=== PATIENT | female | born 1970 | race Caucasian/White ===

== ENCOUNTER 2017-12-19 12:11 | Emergency (ER) | payer BC ==
[2017-12-19 16:37] VITALS: BP 141/90
--- NOTE | 2017-12-19 16:45 | UC ---
Throat Pain/Nasal Arash HPI - HPI Summary HPI Summary: pt avani has been ill with cold symptoms for over a week. the past 1-2 days she has developed sinus pain on the left. she has been tx with mucinex and alkaseltzer cold with no relief. she c/o not being able to get the congestion out. she denies any dental pain or sore throat. - History of Current Complaint Chief Complaint: UCGeneralIllness Stated Complaint: SINUSES/HEAD CONGESTION Time Seen by Provider: 12/19/17 16:37 Hx Obtained From: Patient Hx Last Menstrual Period: has Mirena ?: No Onset/Duration: Gradual Onset Severity: Moderate Pain Intensity: 5 Associated Signs & Symptoms: Positive: Sinus Discomfort, Nasal Discharge Related History: Other (Noted In Comments) - sinus infections with same presentation - Allergies/Home Medications Allergies/Adverse Reactions: Allergies Allergy/AdvReac Type Severity Reaction Status Date / Time Penicillins Allergy Intermediate Hives Verified 12/19/17 16:38 erythromycin base AdvReac "insides Verified 12/19/17 16:38 spasm" Home Medications: Home Medications Losartan/Hydrochlorothiazide [Losartan-Hctz 50-12.5 mg Tab] 2 tab PO DAILY 12/19 [History Confirmed 12/19/17] PMH/Surg Hx/FS Hx/Imm Hx Cardiovascular History: Hypertension Other Respiratory History: sinusitis - Surgical History Surgical History: Yes Surgery Procedure, Year, and Place: gallbladder. Partial Hysterectomy 07/23 - Social History Occupation: Employed Full-time Alcohol Use: Occasionally Substance Use Type: None Smoking Status (MU): Former Smoker Type: Cigarettes Amount Used/How Often: 1-2 cigarettes daily Length of Time of Smoking/Using Tobacco: off and on for years Have You Smoked in the Last Year: Yes Household Exposure Type: Cigarettes Review of Systems Constitutional: Negative Skin: Negative Eyes: Negative ENT: Sinus Congestion, Sinus Pain/Tenderness Respiratory: Negative Cardiovascular: Negative Gastrointestinal: Negative Genitourinary: Negative Is Patient Immunocompromised?: No All Other Systems Reviewed And Are Negative: Yes Physical Exam Triage Information Reviewed: Yes Vital Signs: Initial Vital Signs Temp 98 F 12/19/17 16:32 Pulse 91 12/19/17 16:32 Resp 16 12/19/17 16:32 BP 141/90 12/19/17 16:32 Pulse Ox 99 12/19/17 16:32 Vital Signs Reviewed: Yes Eye Exam: Normal ENT: Positive: Pharynx normal, Nasal congestion, TMs normal, Sinus tenderness - L maxilla. Neck: Positive: Supple, Nontender, No Lymphadenopathy Respiratory: Positive: Lungs clear, Normal breath sounds, No respiratory distress Cardiovascular: Positive: RRR, No Murmur, Pulses Normal Abdomen Description: Positive: Nontender, No Organomegaly, Soft Bowel Sounds: Positive: Present Neurological Exam: Normal Psychological: Positive: Age Appropriate Behavior Skin Exam: Normal Throat Pain/Nasal Course/Dx - Course Course Of Treatment: hx and PE c/w sinusitis, pcn allergy thus will tx with doxycycline. pt advised to use flonase otc per label as well. Pt has a known hx of htn. she notes current BP is much improved for her. her pcp recently "double " her bp medication. nothing to suggest htn urgency or emergency. - Differential Dx/Diagnosis Provider Diagnoses: sinusitis Discharge - Discharge Plan Condition: Stable Disposition: HOME Prescriptions: DOXYcycline CAP(*) [DOXYcycline 100MG CAP(*)] 100 mg PO BID 10 Days #20 cap Patient Education Materials: Sinusitis (ED) Referrals: Wolf Portillo MD [Primary Care Provider] - 7 Days
== END 2017-12-19 16:55 | disposition home or self-care (01) ==
LOC: UCCORT 12:11
DX: J32.9 Chronic sinusitis, unspecified (principal); I10 Essential (primary) hypertension; Z87.891 Personal history of nicotine dependence
CPT/HCPCS: 99212; G0463